=== PATIENT | male | born 1935 | race Native Hawaiian/Other Pacific Islander ===

== ENCOUNTER 2022-02-21 16:51 | Emergency (ER) | payer OTHER ==
[~2022-02-21] VITALS: Ht 182.9 cm; Wt 85.7 kg
[2022-02-21 16:51] VITALS: BP 155/61; TEMP 98
[~2022-02-21 16:51] MED LIST: AMMONIUM LACTATE12 % EX; ASPIR-LOW81 MG PO; ASPIRIN325 M1 PO; BUSPIRONE HYDROC5 MG PO; CELEXA10 MG PO; CHOL100034 PO; DONE5TAB PO; ESCI10TA PO; FURO20TA67 PO; IPRATROPIUM/ INH; LEVO0.0723 PO; LORA10TA3 PO; MEMA5TAB PO; MIRTAZAPINE7.5 MG PO; NEOMSUS6 OPTH; PANTOPRAZOLE 40MG TA PO; REMERON30 MG PO; SODI1TAB PO; TIROSINT150 MCG PO; TRAM50TA PO; TRILEPTAL150 MG PO
[2022-02-21 17:30] LABS: PLATELET COUNT 105 K/uL (142-355)
[2022-02-21 17:56] LABS: POTASSIUM 4.1 mmol/L (3.6-5.2)
[2022-02-21] MEDS ORDERED: ALBUTEROL108 MCG/AC INH (21:37)
[2022-02-21] MEDS ORDERED: TUSSIN DM PO (21:41)
[2022-02-21] MEDS ORDERED: TAMSULOSIN HYD0.4 MG PO (21:45)
[2022-02-21] MEDS ORDERED: OMEPRAZOLE DR20 MG PO (21:48)
[2022-02-21] MEDS ORDERED: TEMA15CA19 PO (21:50)
[2022-02-21] MEDS ORDERED: SOD CHLORIDE1 GM PO (21:52)
[2022-02-21] MEDS ORDERED: MIRTAZAPINE7.5 MG PO (21:54)
[2022-02-21] MEDS ORDERED: DIVALPROEX125 M1 PO (21:57)
[2022-02-21] MEDS ORDERED: ACIDOPHILU6 PO (22:00)
[2022-02-21] MEDS ORDERED: BUSPIRONE10 MG PO (22:01)
== END 2022-02-21 18:03 | disposition home or self-care (01) ==
LOC: ED 16:51
PROVIDERS: Emergency Medicine
DX: G30.8 Other Alzheimer's disease (principal); F02.81 Dementia in other diseases classified elsewhere, unspecified severity, with behavioral disturbance; E86.0 Dehydration; Z11.52 Encounter for screening for COVID-19; Z04.6 Encounter for general psychiatric examination, requested by authority
CPT/HCPCS: 80053; 85027; 87635; 93005; 99283; U0003